=== PATIENT | female | born 1940 | race Caucasian/White ===

== ENCOUNTER 2017-08-02 08:46 | Day surgery (SDC) | payer MEDICARE ==
[2017-07-31 13:13] VITALS: BMI 32.4
[~2017-08-02 08:46] MED LIST: LACTATED RINGERS 1,000 ML IV SCH; MOXIFLOXACIN HCL 0.5% DROPS 3 ML BTL OP ONE; TETRACAINE 0.5% OPHTH (PF) DROPS 4 ML BTL OP ONE; TIMOLOL 0.5% OPHTH DROPS 5 ML BTL OP ONE
[2017-08-02 11:29] VITALS: TEMP 98.3
[2017-08-02] MEDS: PHENYLEPHRINE 2.5% OPHTH DRP 2ML OP NR ×3 (11:34→11:55)
[2017-08-02] MEDS: CYCLOPENTOLATE 1% OPHTH SOLN 2 ML BTL OP ONE ×3 (11:36→11:59)
[2017-08-02] MEDS ORDERED: LIDOCAINE 1% 20 ML VIAL (10MG/ML) FOR IV START INTRADERMA ONE (11:54)
[2017-08-02] MEDS ORDERED: fentaNYL (PF) 50 MCG/ML 2 ML AMP ONE (13:00)
[2017-08-02] MEDS ORDERED: MIDAZOLAM 2 MG/2 ML VIAL ONE (13:00)
[2017-08-02] MEDS ORDERED: HYALURONATE SODIUM INTRAOCULAR 1 EACH SYRINGE (12MG/ML) INTRAOCULA ONE (13:09)
[2017-08-02] MEDS ORDERED: BALANCED SALT IRRIG SOLN COMB2 15 ML IRRIG.SOLN IRRIGATION ONE (13:10)
[2017-08-02] MEDS ORDERED: LIDOCAINE 1% (PF) 10MG/ML VIAL MISCELLANE ONE (13:10)
--- NOTE | 2017-08-02 13:30 | P.OP ---
Date of Procedure: 08/02/17 Preoperative Diagnosis: NS Postoperative Diagnosis: same Procedure(s) Performed: PIOL OS Implants: ZXR00 23.50 Anesthesia: MAC Surgeon: Reid Stafford Pathology: none sent Condition: stable Disposition: same day Indications for Procedure: blurry vision Operative Findings: no complications
[2017-08-02 13:52] VITALS: BP 140/68; PULSE 62; RESP 18
--- NOTE | 2017-08-03 08:00 | OP ---
OPERATIVE REPORT DATE OF SURGERY: 02 August 2017 PREOPERATIVE DIAGNOSIS: Nuclear sclerosis. POSTOPERATIVE DIAGNOSIS: Nuclear sclerosis. OPERATION: Phacoemulsification of cataract and intraocular lens implant of the left eye. ESTIMATED BLOOD LOSS: Zero. SPECIMEN TAKEN: None. NARRATIVE: After obtaining the appropriate consent, the patient was brought to the Operating Room where the patient was placed under cardiac monitoring and prepped and draped in the usual sterile manner. At the 5 o'clock position a 15 degree super sharp blade was used to create a paracentesis followed by instillation of 1% Xylocaine MPF 50:50 mix with BSS into the anterior chamber. This was followed by Amvisc to stabilize the anterior chamber. At the 3 o'clock position a self-sealing corneal flap incision was created using 2.8 mm nena keratome. A cystatome was used to initiate a continuous tear capsulorrhexis which was completed with the Utrata forceps. A Binkhorst cannula was used to hydrodissect the lens nucleus followed by hydrodelineation. Phacoemulsification of the lens was performed utilizing phacochop in 13.44 seconds at 11% power. The remaining cortical material was removed using the irrigation aspiration mode followed by additional 1% Xylocaine MPF into the anterior chamber followed by viscoelastic to stabilize the capsular bag. An DIONNE ZRX 00 23.5 diopter posterior chamber lens was placed into the capsular bag without difficulty. The remaining viscoelastic material was removed from the anterior chamber with the irrigation/aspiration. Balanced salt solution was used to normalize the intraocular pressure. The incision was checked for watertight integrity. The patient then received two drops of 0.5% timolol followed by two drops Vigamox, was lightly patched and shielded in the usual manner. There were no complications from the procedure. The patient tolerated the procedure well and was returned to recovery in good condition. MMODL / IJN: [id number] /
== END 2017-08-02 14:15 | disposition home or self-care (01) ==
LOC: OR 08:46
PROVIDERS: ATTEND Ophthalmology
DX: H25.13 Age-related nuclear cataract, bilateral (principal); H02.836 Dermatochalasis of left eye, unspecified eyelid; H02.833 Dermatochalasis of right eye, unspecified eyelid; H52.03 Hypermetropia, bilateral; H52.4 Presbyopia; H00.026 Hordeolum internum left eye, unspecified eyelid; H00.023 Hordeolum internum right eye, unspecified eyelid; I10 Essential (primary) hypertension; E78.5 Hyperlipidemia, unspecified; E07.9 Disorder of thyroid, unspecified; Z79.899 Other long term (current) drug therapy; Z88.2 Allergy status to sulfonamides
CPT/HCPCS: 66984; V2632; V2788; J2250; J3010; J2001

== ENCOUNTER 2017-08-30 09:14 | Day surgery (SDC) | payer MEDICARE ==
[2017-08-24 09:29] VITALS: BMI 32.4
[2017-08-30] MEDS ORDERED: LIDOCAINE 1% 20 ML VIAL (10MG/ML) FOR IV START INTRADERMA ONE (10:30)
[2017-08-30] MEDS: CYCLOPENTOLATE 1% OPHTH SOLN 2 ML BTL OP ONE ×3 (10:45→10:57)
[2017-08-30] MEDS: PHENYLEPHRINE 2.5% OPHTH DRP 2ML OP NR ×3 (10:48→11:00)
[2017-08-30 11:03] VITALS: TEMP 97.4
[2017-08-30] MEDS ORDERED: fentaNYL (PF) 50 MCG/ML 2 ML AMP ONE (11:22)
[2017-08-30] MEDS ORDERED: MIDAZOLAM 2 MG/2 ML VIAL ONE (11:22)
[2017-08-30] MEDS ORDERED: HYALURONATE SODIUM INTRAOCULAR 1 EACH SYRINGE (12MG/ML) INTRAOCULA ONE (11:28)
[2017-08-30] MEDS ORDERED: LIDOCAINE 1% (PF) 10MG/ML VIAL MISCELLANE ONE (11:29)
[2017-08-30] MEDS ORDERED: BALANCED SALT IRRIG SOLN COMB2 15 ML IRRIG.SOLN INTRAOCULA ONE (11:29)
[2017-08-30] MEDS ORDERED: EPINEPHrine (PF) 0.3 ML in BALANCED SALT IRRIG SOLN COMB2 500 ML IRRIGATION ONE (11:31)
[2017-08-30 11:58] VITALS: RESP 16
--- NOTE | 2017-08-30 12:00 | P.OP ---
Date of Procedure: 08/30/17 Preoperative Diagnosis: NS Postoperative Diagnosis: same Procedure(s) Performed: PIOL, OD Implants: [id number] 24.50 Anesthesia: MAC Surgeon: Reid Stafford Estimated Blood Loss (ml): 0 Pathology: none sent Condition: stable Disposition: same day Indications for Procedure: blurry vision Operative Findings: No complication
[2017-08-30 12:32] VITALS: BP 145/83; PULSE 57
--- NOTE | 2017-08-30 14:44 | OP ---
OPERATIVE REPORT DATE OF SERVICE: 08/30/2017 PREOPERATIVE DIAGNOSIS:: Nuclear sclerosis. POSTOPERATIVE DIAGNOSIS:: Nuclear sclerosis. OPERATION:: Phacoemulsification of cataract and intraocular lens implant of the right eye. ESTIMATED BLOOD LOSS:: Zero. SPECIMEN TAKEN:: None. NARRATIVE:: After obtaining the appropriate consent, the patient was brought to the Operating Room where the patient was placed under cardiac monitoring and prepped and draped in the usual sterile manner. At the 11 o'clock position a 15 degree super sharp blade was used to create a paracentesis followed by instillation of 1% Xylocaine MPF 50:50 mix with BSS into the anterior chamber. This was followed by Amvisc to stabilize the anterior chamber. At the 9 o'clock position a self-sealing corneal flap incision was created using 2.8 mm nena keratome. A cystatome was used to initiate a continuous tear capsulorrhexis which was completed with the Utrata forceps. A Binkhorst cannula was used to hydrodissect the lens nucleus followed by hydrodelineation. Phacoemulsification of the lens was performed utilizing phacochop in 13.39 seconds at 11% power. The remaining cortical material was removed using the irrigation aspiration mode followed by additional 1% Xylocaine MPF into the anterior chamber followed by viscoelastic to stabilize the capsular bag. An DIONNE ZXR00 24.5 diopters posterior chamber lens was placed into the capsular bag without difficulty. The remaining viscoelastic material was removed from the anterior chamber with the irrigation/aspiration. Balanced salt solution was used to normalize the intraocular pressure. The incision was checked for watertight integrity. The patient then received two drops of 0.5% timolol followed by two drops Vigamox, was lightly patched and shielded in the usual manner. There were no complications from the procedure. The patient tolerated the procedure well and was returned to recovery in good condition. MMODL / IJN: [id number] /
== END 2017-08-30 12:55 | disposition home or self-care (01) ==
LOC: OR 09:14
PROVIDERS: ATTEND Ophthalmology
DX: H25.11 Age-related nuclear cataract, right eye (principal); I10 Essential (primary) hypertension; H02.833 Dermatochalasis of right eye, unspecified eyelid; H02.836 Dermatochalasis of left eye, unspecified eyelid; H52.03 Hypermetropia, bilateral; H52.223 Regular astigmatism, bilateral; H52.4 Presbyopia; H00.026 Hordeolum internum left eye, unspecified eyelid; H00.023 Hordeolum internum right eye, unspecified eyelid; Z79.899 Other long term (current) drug therapy
CPT/HCPCS: 66984; V2632; J2250; J0171; J3010; J2001

== ENCOUNTER 2018-01-17 11:50 | Day surgery (SDC) | payer MEDICARE ==
[2018-01-12 11:52] VITALS: BMI 29.9
[~2018-01-17 11:50] MED LIST changes: +CYCLOPENTOLATE 1% OPHTH SOLN 2 ML BTL OP ONE; -MOXIFLOXACIN HCL 0.5% DROPS 3 ML BTL OP ONE; +PHENYLEPHRINE 2.5% OPHTH DRP 2ML OP NR; -TIMOLOL 0.5% OPHTH DROPS 5 ML BTL OP ONE
[2018-01-17 14:01] VITALS: RESP 16; TEMP 98.2
[2018-01-17] MEDS ORDERED: LACTATED RINGERS 1,000 ML IV ONE (14:11)
[2018-01-17] MEDS ORDERED: LIDOCAINE 1% 20 ML VIAL (10MG/ML) FOR IV START INTRADERMA ONE (14:11)
[2018-01-17] MEDS ORDERED: BALANCED SALT IRRIG SOLN COMB2 15 ML IRRIG.SOLN IRRIGATION ONE ×2 (15:30→15:47)
[2018-01-17] MEDS: TIMOLOL 0.5% OPHTH DROPS 5 ML BTL OP ONE ×2 (15:31→15:47)
[2018-01-17] MEDS ORDERED: LIDOCAINE 1% (PF) 10MG/ML VIAL SQ ONE ×2 (15:31→15:47)
[2018-01-17] MEDS: MOXIFLOXACIN HCL 0.5% DROPS 3 ML BTL OP ONE ×2 (15:31→15:47)
[2018-01-17] MEDS ORDERED: MIDAZOLAM 2 MG/2 ML VIAL ONE (15:37)
--- NOTE | 2018-01-17 15:55 | P.OP ---
Date of Procedure: 01/17/18 Preoperative Diagnosis: residual cataract right eye Postoperative Diagnosis: same Procedure(s) Performed: removal cataract material Implants: none Anesthesia: MAC Surgeon: Reid Stafford Estimated Blood Loss (ml): 0 Pathology: none sent Condition: stable Disposition: same day Indications for Procedure: iritis Operative Findings: no complications
[2018-01-17 16:21] VITALS: BP 147/71; PULSE 52
[2018-01-17] MEDS ORDERED: ACETAMINOPHEN TAB 500 MG TAB PO ONE (16:30)
--- NOTE | 2018-01-18 06:47 | OP ---
OPERATIVE REPORT PROCEDURE: Removal of residual cataract material from the right eye. PREOPERATIVE DIAGNOSIS: Cataract remnant, right eye. POSTOPERATIVE DIAGNOSIS: Cataract remnant, right eye. SURGEON: Dr. Reid Stafford. ANESTHESIA: Topical. ESTIMATED BLOOD LOSS: None. SPECIMEN TAKEN: None. NARRATIVE: After obtaining the appropriate consent, the patient was brought to the operating room. There she was placed under cardiac monitoring, prepped and draped in the usual sterile manner. She was approached from her right temporal side and at the 11 o'clock position, a 20-gauge paracentesis port was created. Through this opening 1% Xylocaine MPF 50:50 mix with balanced salt solution was injected into the anterior chamber. This was followed by a temporal incision at the 9 o'clock position with a 2.5 mm keratome. Irrigation and aspiration of the remaining cortex was accomplished without difficulty. The eye was then brought to normal intraocular pressure through the paracentesis port. She then received 2 drops of 0.5% Timolol followed by 2 drops of Vigamox, was then lightly patched and shielded in the usual manner. There were no complications from the procedure. She tolerated the procedure well and was returned to outpatient recovery in good condition. MMODL / IJN: [id number] /
== END 2018-01-17 17:01 | disposition home or self-care (01) ==
LOC: OR 11:50
PROVIDERS: ATTEND Ophthalmology
DX: H59.021 Cataract (lens) fragments in eye following cataract surgery, right eye (principal); H20.00 Unspecified acute and subacute iridocyclitis; H02.836 Dermatochalasis of left eye, unspecified eyelid; H02.833 Dermatochalasis of right eye, unspecified eyelid; H52.03 Hypermetropia, bilateral; H52.223 Regular astigmatism, bilateral; H52.4 Presbyopia; H00.026 Hordeolum internum left eye, unspecified eyelid; H00.023 Hordeolum internum right eye, unspecified eyelid; I10 Essential (primary) hypertension; H91.90 Unspecified hearing loss, unspecified ear; E07.9 Disorder of thyroid, unspecified; E78.5 Hyperlipidemia, unspecified; Z79.1 Long term (current) use of non-steroidal anti-inflammatories (NSAID); Z79.899 Other long term (current) drug therapy; Z79.82 Long term (current) use of aspirin; Z79.890 Hormone replacement therapy; Z88.2 Allergy status to sulfonamides; Z91.040 Latex allergy status; Z90.710 Acquired absence of both cervix and uterus